=== PATIENT | female | born 1990 | race Caucasian/White ===

== ENCOUNTER 2021-07-12 13:20 | Inpatient (IN) | payer OTHER ==
[~2021-07-12] VITALS: Ht 160 cm; Wt 89.8 kg
[2021-07-12] MEDS ORDERED: MIDAZOLAM HCL 5 MG/ML VIAL (VERSED) IV ONE (13:41)
[2021-07-12] MEDS ORDERED: SUCCINYLCHOLINE CHLORIDE 20 MG/ML(QUELICIN) ONE (13:41)
[2021-07-12] MEDS ORDERED: BUPIVACAINE /EPINEPHRINE/PF 0.25% 30 ML VIAL INJ ONE (13:41)
[2021-07-12] MEDS ORDERED: LIDOCAINE/EPI 2% 1:100000 20 ML VIAL INJ ONE (13:41)
[2021-07-12] MEDS ORDERED: GLYCOPYRROLATE 0.2 MG/ML VIAL ONE (13:41)
[2021-07-12] MEDS ORDERED: fentaNYL CITRATE 250 MCG/5 ML AMP ONE (13:41)
[2021-07-12] MEDS ORDERED: NS IRRIG SOLN 1000 ML IR ONE (13:41)
[2021-07-12] MEDS ORDERED: LR 1,000 ML IV.SOLN IV ONE (13:41)
[2021-07-12] MEDS ORDERED: METOCLOPRAMIDE HCL 10 MG/2 ML VIAL ONE (13:41)
[2021-07-12] MEDS ORDERED: ceFAZolin SODIUM 1 GM VIAL ONE (13:41)
[2021-07-12] MEDS ORDERED: PROPOFOL 200MG/ 20ML VIAL (DIPRIVAN) IV ONE (13:41)
[2021-07-12] MEDS ORDERED: SEVOFLURANE 15 MIN GAS INH ONE (13:41)
[2021-07-12] MEDS ORDERED: ROCURONIUM BROMIDE 10 MG/ML (ZEMURON) ONE (13:41)
[2021-07-12] MEDS ORDERED: TERBUTALINE SULFATE 1 MG/ML VIAL SUBCUT ONE (14:45)
[2021-07-12] MEDS ORDERED: LR 1,000 ML IV ONE (14:45)
[2021-07-12] MEDS ORDERED: NALBUPHINE HCL 10 MG/ML AMP IVP PRN (14:45)
[2021-07-12] MEDS ORDERED: CLINDAMYCIN 900 mg/50mL D5W 50 ML IV SCH (15:00)
[2021-07-12] MEDS: OXYTOCIN/0.9 % SODIUM CHLORIDE 1,000 ML IV SCH (15:01)
[2021-07-12] MEDS: LR 1,000 ML IV SCH ×3 (15:01→21:19)
[2021-07-12 15:14] LABS: BASOPHILS # (AUTO) 0.1 K/uL (0.0-0.2); EOSINOPHILS % (AUTO) 0.1 % (0.0-4.0); HEMATOCRIT 32.2 % (36-48); HEMOGLOBIN 10.4 g/dL (12.0-16.0); LYMPHOCYTES # (AUTO) 1.1 K/uL (1.0-5.5); LYMPHOCYTES % (AUTO) 16.5 % (20.5-51.5); MEAN CORPUSCULAR HEMOGLOBIN 28 pg (27-31); MEAN CORPUSCULAR HGB CONC 32 % (32-36); MEAN CORPUSCULAR VOLUME 87 fL (79.0-98.0); MONOCYTES # (AUTO) 0.5 K/uL (0.0-1.0); MONOCYTES % (AUTO) 7.8 % (1.7-9.3); NEUTROPHILS # (AUTO) 5.1 K/uL (1.8-7.7); NEUTROPHILS % (AUTO) 73.6 % (40.0-70.0); PLATELET COUNT (AUTO) 236 K/uL (130-430); RED CELL DISTRIBUTION WIDTH 16.7 % (9.0-15.0); WHITE BLOOD COUNT (AUTO) 6.9 K/uL (4.8-10.8)
[2021-07-12 15:16] LABS: BILIRUBIN,URINE NEGATIVE (NEGATIVE); BLOOD, URINE NEGATIVE (NEGATIVE); CLARITY/URINE CLEAR (CLEAR); COLOR,URINE YELLOW (YELLOW); GLUCOSE,URINE NEGATIVE (NEGATIVE); KETONES,URINE NEGATIVE (NEGATIVE); LEUKOCYTE ESTERASE ,URINE 2+ (NEGATIVE); NITRITE, URINE NEGATIVE (NEGATIVE); PROTEIN URINE NEGATIVE (NEGATIVE); UROBILINOGEN,URINE 0.2 (0.2-1.0)
[2021-07-12 15:32] LABS: RBC,URINE 0-3 /HPF (0-3)
[2021-07-12 15:33] LABS: BACTERIA,URINE FEW /HPF (None Seen); MUCUS,URINE 1+ /LPF (None Seen)
[2021-07-12] MEDS ORDERED: CLINDAMYCIN 900 mg/50mL D5W 50 ML IV ONE (19:00)
[2021-07-12] MEDS ORDERED: CLINDAMYCIN 900 MG in D5W 100 ML IV ONE (19:00)
[2021-07-12] MEDS ORDERED: CLINDAMYCIN 900 MG in D5W 100 ML IV SCH ×5 (19:00→22:00)
[2021-07-12] MEDS ORDERED: ROPIVACAINE HCL/PF 0.2% 200 ML ONE (19:51)
[2021-07-12] MEDS ORDERED: fentaNYL CITRATE/PF 100 MCG/2 ML AMP ONE (19:51)
[2021-07-12] MEDS ORDERED: LR 500 ML IV ONE (20:45)
[2021-07-12] MEDS ORDERED: FENT2mCg/mL-ROPIVA0.2%/NS EPID 200 ML EP SCH (20:45)
[2021-07-12] MEDS ORDERED: LIDOCAINE PF 1% 30ML(POUR BTL) INJ ONE (21:51)
[2021-07-12] MEDS ORDERED: NALOXONE HCL 0.4 MG/ML AMP (NARCAN) ONE (21:51)
[2021-07-12] MEDS ORDERED: LIGHT MINERAL OIL 10 ML VIAL MC ONE (21:51)
[2021-07-12] MEDS ORDERED: OXYTOCIN 10 UNIT/ML VIAL IM ONE (21:52)
[2021-07-12] MEDS ORDERED: OXYTOCIN 10 UNIT/ML VIAL ONE (21:52)
[2021-07-12] MEDS ORDERED: HYDROcodone/ACETAMIN 5-325 MG TAB (NORCO/ VICODIN) PO PRN (22:30)
[2021-07-12] MEDS ORDERED: OXYCODONE/ACETAMINOPHEN 5-325 TABLET PO PRN ×2 (22:30)
[2021-07-12] MEDS: IBUPROFEN 600 MG TABLET PO SCH (23:51)
[2021-07-13] MEDS: OXYTOCIN/0.9 % SODIUM CHLORIDE 1,000 ML IV SCH (03:06)
[2021-07-13] MEDS: CLINDAMYCIN 900 mg/50mL D5W 50 ML IV SCH ×2 (03:06→11:05)
[2021-07-13] MEDS: IBUPROFEN 600 MG TABLET PO SCH ×3 (06:00→17:36)
[2021-07-13 06:06] LABS: HEMATOCRIT 30.2 % (36-48); HEMOGLOBIN 9.9 g/dL (12.0-16.0)
[2021-07-13 15:16] VITALS: BP_SYST 109
[2021-07-14] MEDS: IBUPROFEN 600 MG TABLET PO SCH ×3 (05:59→11:48)
== END 2021-07-14 12:17 | disposition home or self-care (01) | DRG 541 ==
LOC: SPU 13:20
PROVIDERS: ADMIT Obstetrics & Gynecology; ATTEND Obstetrics & Gynecology
PROC: 10E0XZZ Delivery of Products of Conception, External Approach (ICD-10-PCS; principal; 2021-07-12)
PROC: 10907ZC Drainage of Amniotic Fluid, Therapeutic from Products of Conception, Via Natural or Artificial Opening (ICD-10-PCS; 2021-07-12)
PROC: 3E0R3BZ Introduction of Anesthetic Agent into Spinal Canal, Percutaneous Approach (ICD-10-PCS; 2021-07-12)
PROC: 00HU33Z Insertion of Infusion Device into Spinal Canal, Percutaneous Approach (ICD-10-PCS; 2021-07-12)
PROC: 0UB70ZZ Excision of Bilateral Fallopian Tubes, Open Approach (ICD-10-PCS; 2021-07-13)
DX: O69.81X0 Labor and delivery complicated by cord around neck, without compression, not applicable or unspecified (principal); Z37.0 Single live birth; O99.12 Other diseases of the blood and blood-forming organs and certain disorders involving the immune mechanism complicating childbirth; E66.01 Morbid (severe) obesity due to excess calories; O99.214 Obesity complicating childbirth; Z20.822 Contact with and (suspected) exposure to COVID-19; D72.829 Elevated white blood cell count, unspecified; Z3A.39 39 weeks gestation of pregnancy; Z30.2 Encounter for sterilization
CPT/HCPCS: 36415; 81000; 85018; 85025; 86592; 86780; 86886; 86900; 86901; 88302; J0330; J0690; J2001; J2250; J2310; J2590; J2704; J2765; J3010; J3490; J7060; J7120